=== PATIENT | female | born 1950 | race Caucasian/White ===

== ENCOUNTER → 2017-04-29 | Outpatient (CLI) | payer MEDICARE ==
--- NOTE | 2017-04-29 08:35 | BD ---
EXAMINATION TYPE: MG DEXA axial skeleton. DATE OF EXAM: 04/29/2017 COMPARISON: Previous study dated 05/04/2015 CLINICAL HISTORY: Postmenopausal female. Height: 60.5 IN Weight: 167 LBS FRAX RISK QUESTIONS: Alcohol (3 or more units per day): NO Family History (Parent hip fracture): NO Glucocorticoids (More than 3mos): NO (Ex: prednisone, prednisolone, methylprednisolone, dexamethasone, and hydrocortisone). History of Fracture in Adulthood: NO Secondary Osteoporosis: 1. Type 1 Diabetes: NO 2. Hyperthyroidism: NO 3. Menopause before 45: YES AGE 41 4. Malnutrition: NO 5. Chronic liver disease: NO Rheumatoid Arthritis: NO Current Tobacco Use: NO RISK FACTORS HISTORY OF: Active: YES Diet low in dairy products/other sources of calcium: YES Postmenopausal woman: AGE 41 Take estrogen and/or progesterone medications: NOT NOW How long: CONTROL AND HORMONES FOR 20 YRS ALL TOGETHER MEDICATIONS: Thyroid Medications: YES Which medication: Levothyroxine How Lon YR Additional Medications: CALCIUM, VIT D, LEVOTHYROXINE, ARIMIDEX Additional History: BREAST CANCER WITH CHEMO EXAM MEASUREMENTS: Bone mineral densitometry was performed using the [employer] System. Bone mineral density as measured about the Lumbar spine is: ----- L1-L4(G/cm2): 1.331 T Score Values are as follows: ----- L2: 1.2 ----- L3: 1.0 ----- L4: 2.0 ----- L1-L4: 1.3 Bone mineral density has: Decreased -4.3% since study of: 05/04/2015 Bone mineral density about the R hip (g/cm2): 0.797 Bone mineral density about the L hip (g/cm2): 0.743 T Score values are as follows: -----R Neck: -1.7 -----L Neck: -2.1 -----R Total: -0.4 -----L Total: -1.1 Bone mineral density has: Increased 0.7% since study of: 05/04/2015 IMPRESSION: OSTEOPENIA. 10 YEAR FRACTURE RISK: MAJOR OSTEOPOROTIC FRACTURE RISK: 11.1% HIP FRACTURE RISK: 1.9% NOTE: T-SCORE=SD OF THE YOUNG ADULT MEAN.
== END ==
LOC: RADBDWWP 07:46
PROVIDERS: ATTEND Internal Medicine Hematology & Oncology
DX: M85.80 Other specified disorders of bone density and structure, unspecified site (principal); C50.112 Malignant neoplasm of central portion of left female breast; Z79.890 Hormone replacement therapy
CPT/HCPCS: 77080

== ENCOUNTER → 2018-01-02 | Outpatient (CLI) | payer MEDICARE ==
[2018-01-02 09:04] LABS: Basophils % (A) 1 %; Eosinophils # (A) 0.2 k/uL (0-0.7); Eosinophils % (A) 2 %; HCT 41.6 % (34.0-46.0); Lymphocytes # (A) 2.2 k/uL (1.0-4.8); Lymphocytes % (A) 29 %; MCH 30.2 pg (25.0-35.0); MCHC 33.7 g/dL (31.0-37.0); MCV 89.8 fL (80.0-100.0); Mean Platelet Volume 9.4; Monocytes # (A) 0.4 k/uL (0-1.0); Monocytes % (A) 5 %; Neutrophils # (A) 4.7 k/uL (1.3-7.7); Neutrophils % (A) 61 %; Platelet Count 209 k/uL (150-450); RBC 4.63 m/uL (3.80-5.40); RDW 12.2 % (11.5-15.5); WBC 7.7 k/uL (3.8-10.6)
--- NOTE | 2018-01-02 09:34 | US ---
EXAMINATION TYPE: US carotid duplex BILAT DATE OF EXAM: 01/02/2018 COMPARISON: MRI cervical spine July 25, 2016. CLINICAL HISTORY: R60.9 Bilateral Leg Swelling. EXAM MEASUREMENTS: heterogenous thyroid RIGHT: Peak Systolic Velocity (PSV) cm/sec ----- Right CCA: 81.5 ----- Right ICA: 93.9 ----- Right ECA: 107.0 ICA/CCA ratio: 1.2 RIGHT: End Diastole cm/sec ----- Right CCA: 24.6 ----- Right ICA: 32.8 ----- Right ECA: 19.8 LEFT: Peak Systolic Velocity (PSV) cm/sec ----- Left CCA: 135.0 ----- Left ICA: 77.8 ----- Left ECA: 77.8 ICA/CCA ratio: 0.8 LEFT: End Diastole cm/sec ----- Left CCA: 33.3 ----- Left ICA: 31.1 ----- Left ECA: 18.7 VERTEBRALS (direction of flow): Right Vertebral: Antegrade Left Vertebral: Antegrade Rhythm: Normal Grayscale images show no significant focal plaque at carotid bulb level bilaterally. Velocity measure ments and ratios remain within normal limits. Heterogeneous normal size thyroid incidentally noted. IMPRESSION: No hemodynamically significant stenosis is seen in either internal carotid artery.
[2018-01-02 09:42] LABS: ALT 25 U/L (9-52); AST 26 U/L (14-36); Albumin 4.3 g/dL (3.5-5.0); Alkaline Phosphatase 111 U/L (38-126); Anion Gap 14 mmol/L; Blood Urea Nitrogen 17 mg/dL (7-17); Calcium 9.9 mg/dL (8.4-10.2); Carbon Dioxide 25 mmol/L (22-30); Chloride 103 mmol/L (98-107); Cholesterol 244 mg/dL (<200); Glucose 96 mg/dL (74-99); HDL Cholesterol 71 mg/dL (40-60); LDL Cholesterol,Calculated 153 mg/dL (0-99); Potassium 4.5 mmol/L (3.5-5.1); Sodium 142 mmol/L (137-145); Total Bilirubin 0.4 mg/dL (0.2-1.3); Total Protein 7.4 g/dL (6.3-8.2); Triglycerides 101 mg/dL (<150)
[2018-01-02 09:53] LABS: T4, Free (Free Thyroxine) 1.66 ng/dL (0.78-2.19)
[2018-01-02 19:02] LABS: Hemoglobin A1C 5.5 % (4.0-6.0)
== END | disposition home or self-care (01) ==
LOC: RADUSWWP 08:12
PROVIDERS: ATTEND Internal Medicine Geriatric Medicine
DX: I65.23 Occlusion and stenosis of bilateral carotid arteries (principal); G62.9 Polyneuropathy, unspecified; R73.9 Hyperglycemia, unspecified; E03.9 Hypothyroidism, unspecified; E78.00 Pure hypercholesterolemia, unspecified
CPT/HCPCS: 80053; 80061; 83036; 84439; 84443; 85025; 93880

== ENCOUNTER → 2018-05-05 | Outpatient (CLI) | payer MEDICARE ==
--- NOTE | 2018-05-05 13:43 | BD ---
EXAMINATION TYPE: Axial Bone Density DATE OF EXAM: 05/05/2018 Comparison: Most recent bone scan April 29, 2017 CLINICAL HISTORY: Height: 61 Weight: 168 FRAX RISK QUESTIONS: Alcohol (3 or more units per day): no Family History (Parent hip fracture): no Glucocorticoids (More than 3mos): no (Ex: prednisone, prednisolone, methylprednisolone, dexamethasone, and hydrocortisone). History of Fracture in Adulthood: no Secondary Osteoporosis: 1. Type 1 Diabetes: no 2. Hyperthyroidism: no 3. Menopause before 45: no 4. Malnutrition: no 5. Chronic liver disease: no Rheumatoid Arthritis: no Current Tobacco Use: no RISK FACTORS HISTORY OF: Family History of Osteoporosis: unsure Active: yes Diet low in dairy products/other sources of calcium: no Postmenopausal woman: yes Take estrogen and/or progesterone medications: not now How long: hormonal contraceptives for about 20 years Lost more than 2 inches in height since high school: no Frequent falls: no Poor Health: no Hyperparathyroidism: no Adrenal Insufficiency: no MEDICATIONS: Prednisone or other steroids: no Thyroid Medications: yes Which medication: Levothyroxine How Long: a couple years Osteoporosis Medications: no Additional Medications: multiple vitamin, Vitamin D3, Arimidex, Additional History: breast CA age 63/chemo EXAM MEASUREMENTS: Bone mineral densitometry was performed using the [employer] System. Bone mineral density as measured about the Lumbar spine is: ----- L1-L4(G/cm2): 1.329 T Score Values are as follows: ----- L2: 1.3 ----- L3: 1.3 ----- L4: 2.0 ----- L1-L4: 1.2 Bone mineral density has: Increased 0.8since study of: 04/29/2017 Bone mineral density about the R hip (g/cm2): 0.835 Bone mineral density about the L hip (g/cm2): 0.759 T Score values are as follows: -----R Neck: -1.5 -----L Neck: -2.0 -----R Total: -0.5 -----L Total: -0.9 Bone mineral density has: Increased 0.3since study of: 04/29/2017 IMPRESSION: Osteopenia (T Score between -2.5 and -1) at femoral neck level in both hips remains present. Bone den sity is slightly increased from most recent prior There remains slightly increased risk of fracture and the patient may be considered for treatment if Has not begun. Re-Screen 2-5 years. NOTE: T-SCORE=SD OF THE YOUNG ADULT MEAN.
== END | disposition home or self-care (01) ==
LOC: RADBDWWP 09:46
PROVIDERS: ATTEND Internal Medicine Hematology & Oncology
DX: M85.852 Other specified disorders of bone density and structure, left thigh (principal); M85.851 Other specified disorders of bone density and structure, right thigh; C50.112 Malignant neoplasm of central portion of left female breast; Z79.890 Hormone replacement therapy
CPT/HCPCS: 77080

== ENCOUNTER → 2018-10-15 | Outpatient (CLI) | payer MEDICARE ==
--- NOTE | 2018-10-18 15:06 | MM ---
Reason for exam: additional evaluation requested from prior study. Last mammogram was performed 1 year and 1 month ago. History: Patient is postmenopausal, has history of breast cancer at age 63, and is nulliparous. Chemotherapy, January 2015. Implant in the left breast, November 16, 2014. Mastectomy of the left breast, November 16, 2014. Malignant US biopsy breast VAD LT of the left breast, October 11, 2014. Malignant US biopsy breast add'l VAD LT of the left breast, October 11, 2014. Took hormonal contraceptives for 20 years. Taking antineoplastic for 1 year beginning at age 63. Physical Findings: Nurse did not find any significant physical abnormalities on exam. MG 3D Diag Mammo W/Cad RT CC, MLO, and ML view(s) were taken of the right breast. Prior study comparison: September 23, 2017, right breast MG 3d diag mammo w/cad RT. September 21, 2016, right breast MG 3d diag mammo w/cad RT. The breast tissue is heterogeneously dense. This may lower the sensitivity of mammography. There are benign-appearing right breast diffuse calcifications. No suspicious abnormality. These results were verbally communicated with the patient and result sheet given to the patient on 10/15/18. No significant changes when compared with prior studies. ASSESSMENT: Benign, BI-RAD 2 RECOMMENDATION: Follow-up diagnostic mammogram of the right breast in 1 year.
== END | disposition home or self-care (01) ==
LOC: RADMAMWWP 09:20
PROVIDERS: ATTEND Internal Medicine Hematology & Oncology
DX: Z08 Encounter for follow-up examination after completed treatment for malignant neoplasm (principal); Z85.3 Personal history of malignant neoplasm of breast
CPT/HCPCS: 77065; G0279; 77061

== ENCOUNTER → 2018-11-05 | Outpatient (CLI) | payer MEDICARE ==
--- NOTE | 2018-11-05 09:46 | XR ---
EXAMINATION TYPE: XR lumbar spine 2 or 3V DATE OF EXAM: 11/05/2018 COMPARISON: NONE HISTORY: 67-year-old female with low back pain TECHNIQUE: 3 views FINDINGS: Slight levoconvex scoliotic curvature. Hypertrophic facet arthropathy throughout. Moderate discussion plate degenerative change at L2-L3 and mild at multiple additional levels with disc space narrowing and endplate spondylosis. Vertebral body heights are preserved. Trace grade 1 retrolisthesis at L3-L4 . IMPRESSION: Moderate multilevel degenerative disc disease, greatest at L2-L3. Severe hypertrophic facet arthropat hy throughout.
== END ==
LOC: RADXRMAIN 08:57
PROVIDERS: ATTEND Internal Medicine Geriatric Medicine
DX: M51.36 Other intervertebral disc degeneration, lumbar region (principal); M46.96 Unspecified inflammatory spondylopathy, lumbar region
CPT/HCPCS: 72100

== ENCOUNTER → 2019-03-11 | Outpatient (CLI) | payer MEDICARE ==
--- NOTE | 2019-03-11 15:48 | XR ---
EXAMINATION TYPE: XR knee limited RT DATE OF EXAM: 03/11/2019 CLINICAL HISTORY: Right knee pain with no known injury TECHNIQUE: 2 views of the right knee are obtained. COMPARISON: None. FINDINGS: There is no acute fracture/dislocation evident in right knee. The tri-compartment joint s paces demonstrate minimal medial compartment joint space narrowing and very small tricompartmental os teophytes. The overlying soft tissue appears unremarkable. IMPRESSION: There is no acute fracture or dislocation in the right knee. Very mild tricompartmental arthrosis.
== END ==
LOC: RADXRMAIN 14:59
PROVIDERS: ATTEND Internal Medicine Geriatric Medicine
DX: M25.561 Pain in right knee (principal)

== ENCOUNTER → 2019-05-07 | Outpatient (CLI) | payer MEDICARE ==
--- NOTE | 2019-05-07 10:13 | BD ---
EXAMINATION TYPE: Axial Bone Density DATE OF EXAM: 05/07/2019 COMPARISON: 05.05.2018 CLINICAL HISTORY: 68 YR OLD FEMALE....ICD-10 CODE: M85.8 OSTEOPENIA, C50.112 BR CA Height: 60.5 Weight: 161 FRAX RISK QUESTIONS: NOTHING ADDITIONAL TO NOTE HERE RISK FACTORS HISTORY OF: Family History of Osteoporosis: UNKNOWN Active: YES Diet low in dairy products/other sources of calcium: YES Postmenopausal woman: HYST AT AGE 45 MEDICATIONS: Thyroid Medications: YES, LEVOTHYROXINE FOR ABOUT 5 YRS Additional Medications: ARIMIDEX, VIT D3, MULTI-VITAMIN, HX OF CHEMO, REFLUX MEDS PRN, Additional History: HX OF BR CANCER 63 YRS OLD EXAM MEASUREMENTS: Bone mineral densitometry was performed using the [employer] System. Bone mineral density as measured about the Lumbar spine is: ----- L1-L4(G/cm2): 1.343 T Score Values are as follows: ----- L1: 0.4 ----- L2: 1.9 ----- L3: 1.1 ----- L4: 2.0 ----- L1-L4: 1.4 Bone mineral density has: Increased 0.9% since study of: 05.05.2018 Bone mineral density about the R hip (g/cm2): 0.914 Bone mineral density about the L hip (g/cm2): 0.894 T Score values are as follows: -----R Neck: -1.7 -----L Neck: -2.2 -----R Total: -0.7 -----L Total: -0.9 Bone mineral density has: Decreased -1.3% since study of: 05.05.2018 FRAX%s: THERE IS A 12.3% CHANCE FOR A MAJOR OSTEOPOROTIC FX AND A 2.4% FOR HIP.....PROBABILITY FOR FX IN 10 YRS TIME IMPRESSION: Osteopenia (T Score between -2.5 and -1). There is slightly increased risk of fracture and the patient may be considered for treatment. Re-Screen 2-5 years. NOTE: T-SCORE=SD OF THE YOUNG ADULT MEAN.
== END | disposition home or self-care (01) ==
LOC: RADBDWWP 08:30
PROVIDERS: ATTEND Internal Medicine Hematology & Oncology
DX: M85.88 Other specified disorders of bone density and structure, other site (principal); C50.112 Malignant neoplasm of central portion of left female breast; N95.1 Menopausal and female climacteric states; Z79.890 Hormone replacement therapy
CPT/HCPCS: 77080

== ENCOUNTER → 2019-05-22 | Outpatient (CLI) | payer MEDICARE ==
[2019-05-22 10:32] LABS: INR 0.9 (<1.2); Prothrombin Time 9.9 sec (9.0-12.0)
[2019-05-22 10:33] LABS: Basophils # (A) 0.1 k/uL (0-0.2); Basophils % (A) 1 %; Eosinophils # (A) 0.4 k/uL (0-0.7); Eosinophils % (A) 4 %; HCT 43.1 % (34.0-46.0); HGB 14.2 gm/dL (11.4-16.0); Lymphocytes # (A) 2.4 k/uL (1.0-4.8); Lymphocytes % (A) 29 %; MCH 30.8 pg (25.0-35.0); MCHC 32.9 g/dL (31.0-37.0); MCV 93.4 fL (80.0-100.0); Mean Platelet Volume 9.5; Monocytes # (A) 0.4 k/uL (0-1.0); Monocytes % (A) 4 %; Neutrophils % (A) 60 %; Platelet Count 225 k/uL (150-450); RBC 4.61 m/uL (3.80-5.40); RDW 14.5 % (11.5-15.5); WBC 8.3 k/uL (3.8-10.6)
[2019-05-22 11:00] LABS: Appearance,Urine Clear (Clear); Bilirubin,Urine Negative (Negative); Blood,Urine Negative (Negative); Color,Urine Light Yellow; Glucose,Urine (UA) Negative (Negative); Ketones,Urine Negative (Negative); Leukocyte Esterase,Urine Negative (Negative); Nitrite,Urine Negative (Negative); Protein,Urine Negative (Negative); Specific Gravity,Urine 1.005 (1.001-1.035); Urobilinogen,Urine <2.0 mg/dL (<2.0)
[2019-05-22 16:06] LABS: African American GFR (CKD) 87.8 (60.0-200.0); Albumin 4.7 g/dL (3.80-4.90); Albumin/Globulin Ratio 2.04 (1.60-3.17); Anion Gap 10.3 mmol/L (4.00-12.00); BUN/Creat Ratio 18.75 Ratio (12.00-20.00); Calcium 9.6 mg/dL (8.7-10.3); Carbon Dioxide 26.7 mmol/L (21.6-31.8); Globulin 2.3 g/dL (1.6-3.3); Potassium 4.6 mmol/L (3.5-5.5); Total Bilirubin 0.5 mg/dL (0.2-1.2)
[2019-05-22 16:13] LABS: T4, Free (Free Thyroxine) 1.4 ng/dL (0.80-1.80)
== END | disposition home or self-care (01) ==
LOC: LABWHC1 09:53
PROVIDERS: ATTEND Nurse Practitioner Family
DX: Z01.812 Encounter for preprocedural laboratory examination (principal); Z79.01 Long term (current) use of anticoagulants
CPT/HCPCS: 36415; 80053; 81003; 84439; 84443; 85025; 85610

== ENCOUNTER → 2019-11-24 | Outpatient (CLI) | payer MEDICARE ==
--- NOTE | 2019-11-24 07:43 | MM ---
Reason for exam: additional evaluation requested from prior study. Last mammogram was performed 1 year and 1 month ago. History: Patient is postmenopausal, has history of breast cancer at age 63, and is nulliparous. Chemotherapy, January 2015. Implant in the left breast, November 16, 2014. Mastectomy of the left breast, November 16, 2014. Malignant US biopsy breast VAD LT of the left breast, October 11, 2014. Malignant US biopsy breast add'l VAD LT of the left breast, October 11, 2014. Took hormonal contraceptives for 20 years. Taking antineoplastic for 5 years beginning at age 63. Physical Findings: Nurse did not find any significant physical abnormalities on exam. MG 3D Diag Mammo W/Cad RT CC and MLO view(s) were taken of the right breast. Prior study comparison: October 15, 2018, right breast MG 3d diag mammo w/cad RT. September 23, 2017, right breast MG 3d diag mammo w/cad RT. The breast tissue is heterogeneously dense. This may lower the sensitivity of mammography. There is chronic nodularity in the right breast. Stable numerous oil cyst calcifications. No significant new findings when compared with previous films. These results were verbally communicated with the patient and result sheet given to the patient on 11/24/19. ASSESSMENT: Benign, BI-RAD 2 RECOMMENDATION: Follow-up diagnostic mammogram of the right breast in 1 year.
== END | disposition home or self-care (01) ==
LOC: RADMAMWWP 06:48
PROVIDERS: ATTEND Internal Medicine Hematology & Oncology
DX: Z08 Encounter for follow-up examination after completed treatment for malignant neoplasm (principal); Z85.3 Personal history of malignant neoplasm of breast
CPT/HCPCS: 77065; G0279; 77061

== ENCOUNTER → 2020-04-15 | Outpatient (CLI) | payer MEDICARE ==
[2020-04-15 07:39] LABS: Basophils # (A) 0.1 k/uL (0-0.2); Basophils % (A) 1 %; Eosinophils # (A) 0.2 k/uL (0-0.7); Eosinophils % (A) 3 %; HCT 43.6 % (34.0-46.0); Lymphocytes # (A) 2.4 k/uL (1.0-4.8); Lymphocytes % (A) 34 %; MCH 29.8 pg (25.0-35.0); MCHC 32.1 g/dL (31.0-37.0); MCV 92.7 fL (80.0-100.0); Monocytes # (A) 0.3 k/uL (0-1.0); Monocytes % (A) 5 %; Neutrophils % (A) 56 %; Platelet Count 191 k/uL (150-450); RDW 12.7 % (11.5-15.5); WBC 7.2 k/uL (3.8-10.6)
[2020-04-15 12:31] LABS: African American GFR (CKD) 87.2 (60.0-200.0); Albumin 4.3 g/dL (3.80-4.90); Albumin/Globulin Ratio 1.87 (1.60-3.17); Anion Gap 9.1 mmol/L (4.00-12.00); BUN/Creat Ratio 22.5 Ratio (12.00-20.00); Calcium 9.2 mg/dL (8.7-10.3); Carbon Dioxide 24.9 mmol/L (21.6-31.8); Chol/HDL Ratio 3.57; Globulin 2.3 g/dL (1.6-3.3); LDL Cholesterol,Calculated 153.6 mg/dL (0.0-131.0); Non-African American GFR(CKD) 75.2 (60.0-200.0); Potassium 4.2 mmol/L (3.5-5.5); Total Bilirubin 0.6 mg/dL (0.3-1.2); Total Protein 6.6 g/dL (6.2-8.2); VLDL Calculation 21.4 mg/dL (5.00-40.00)
[2020-04-15 15:42] LABS: Hemoglobin A1C 5.9 % (4.0-6.0)
== END | disposition home or self-care (01) ==
LOC: LABWHC1 07:19
PROVIDERS: ATTEND Internal Medicine Geriatric Medicine
DX: E78.2 Mixed hyperlipidemia (principal); R73.09 Other abnormal glucose; E03.9 Hypothyroidism, unspecified; C50.112 Malignant neoplasm of central portion of left female breast
CPT/HCPCS: 36415; 80053; 80061; 83036; 84443; 85025

== ENCOUNTER → 2020-11-25 | Outpatient (CLI) | payer MEDICARE ==
--- NOTE | 2020-11-25 11:43 | MM ---
Reason for exam: additional evaluation requested from prior study. Last mammogram was performed 1 year ago. History: Patient is postmenopausal, has history of breast cancer at age 63, and is nulliparous. Chemotherapy, January 2015. Implant in the left breast, November 16, 2014. Mastectomy of the left breast, November 16, 2014. Malignant US biopsy breast VAD LT of the left breast, October 11, 2014. Malignant US biopsy breast add'l VAD LT of the left breast, October 11, 2014. Took hormonal contraceptives for 20 years. Taking antineoplastic for 5 years beginning at age 63. Physical Findings: Nurse did not find any significant physical abnormalities on exam. MG 3D Diag Mammo W/Cad RT CC and MLO view(s) were taken of the right breast. Prior study comparison: November 24, 2019, right breast MG 3d diag mammo w/cad RT. October 15, 2018, right breast MG 3d diag mammo w/cad RT. The breast tissue is heterogeneously dense. This may lower the sensitivity of mammography. Finding: There are typically benign round, skin, diffuse/scattered calcifications in the right breast. No significant changes in finding since November 24, 2019 and October 15, 2018. These results were verbally communicated with the patient and result sheet given to the patient on 11/25/20. ASSESSMENT: Benign, BI-RAD 2 RECOMMENDATION: Follow-up diagnostic mammogram of the right breast in 1 year.
== END | disposition home or self-care (01) ==
LOC: RADMAMWWP 10:44
PROVIDERS: ATTEND Internal Medicine Hematology & Oncology
DX: Z08 Encounter for follow-up examination after completed treatment for malignant neoplasm (principal); Z85.3 Personal history of malignant neoplasm of breast
CPT/HCPCS: 77065; G0279; 77061

== ENCOUNTER → 2021-11-28 | Outpatient (CLI) | payer MEDICARE ==
--- NOTE | 2021-11-28 10:50 | MM ---
Reason for exam: additional evaluation requested from prior study. Last mammogram was performed 1 year ago. History: Patient is postmenopausal, has history of breast cancer at age 63, and is nulliparous. Chemotherapy, January 2015. Implant in the left breast, November 16, 2014. Mastectomy of the left breast, November 16, 2014. Malignant US biopsy breast VAD LT of the left breast, October 11, 2014. Malignant US biopsy breast add'l VAD LT of the left breast, October 11, 2014. Took hormonal contraceptives for 20 years. Taking antineoplastic for 7 years beginning at age 63. Physical Findings: Nurse did not find any significant physical abnormalities on exam. MG 3D Diag Mammo W/Cad RT CC, MLO, and XCCL view(s) were taken of the right breast. Prior study comparison: November 25, 2020, right breast MG 3d diag mammo w/cad RT. November 24, 2019, right breast MG 3d diag mammo w/cad RT. The breast tissue is heterogeneously dense. This may lower the sensitivity of mammography. Benign dermal calcifications redemonstrated. Global asymmetry subareolar region is unchanged. No significant new findings when compared with previous films. These results were verbally communicated with the patient and result sheet given to the patient on 11/28/21. ASSESSMENT: Benign, BI-RAD 2 RECOMMENDATION: Follow-up diagnostic mammogram of the right breast in 1 year.
--- NOTE | 2021-11-28 18:27 | BD ---
EXAMINATION TYPE: Axial Bone Density DATE OF EXAM: 11/28/2021 COMPARISON: 2018 CLINICAL HISTORY: post menopausal Height: 5'1 Weight: 169 FRAX RISK QUESTIONS: Secondary Osteoporosis: RISK FACTORS HISTORY OF: Postmenopausal woman: y MEDICATIONS: Thyroid Medications: Which medication: Levothyroxine How Lon years Osteoporosis Medications: Which medication: Fosamax How Lon year quit for 4 months Additional Medications: breast cancer, Additional History: breast cancer 2014 EXAM MEASUREMENTS: Bone mineral densitometry was performed using the [employer] System. Bone mineral density as measured about the Lumbar spine is: ----- L1-L4(G/cm2): 1.321 T Score Values are as follows: ----- L2: 0.2 ----- L3: 2.6 ----- L4: 1.5 ----- L1-L4: 1.2 Bone mineral density has: Decreased -1.4% since study of: 05/07/2019 Bone mineral density about the R hip (g/cm2): 0.813 Bone mineral density about the L hip (g/cm2): 0.737 T Score values are as follows: -----R Neck: -1.6 -----L Neck: -2.2 -----R Total: -0.6 -----L Total: -0.8 Bone mineral density has: Increased 1.5% since study of: 05/07/2019 IMPRESSION: Osteopenia (T Score between -2.5 and -1). There is slightly increased risk of fracture and the patient may be considered for treatment. Re-Screen 2-5 years. NOTE: T-SCORE=SD OF THE YOUNG ADULT MEAN.
== END | disposition home or self-care (01) ==
LOC: RADMAMWWP 09:22
PROVIDERS: ATTEND Internal Medicine Hematology & Oncology
DX: R92.8 Other abnormal and inconclusive findings on diagnostic imaging of breast (principal); M85.88 Other specified disorders of bone density and structure, other site; Z79.890 Hormone replacement therapy; Z85.3 Personal history of malignant neoplasm of breast; Z78.0 Asymptomatic menopausal state
CPT/HCPCS: 77080; 77065; G0279; 77061

== ENCOUNTER → 2022-07-20 | Outpatient (CLI) | payer MEDICARE ==
[2022-07-20 16:21] LABS: ALT 22 U/L (8-44); AST 25 U/L (13-35); Albumin 4.5 g/dL (3.8-4.9); Albumin/Globulin Ratio 1.61 (1.60-3.17); Alkaline Phosphatase 86 U/L (41-126); Blood Urea Nitrogen 14.8 mg/dL (9.0-27.0); Calcium 9.5 mg/dL (8.7-10.3); Carbon Dioxide 26.8 mmol/L (20.0-27.5); Chloride 103 mmol/L (96-109); Chol/HDL Ratio 4.02 Ratio; Globulin 2.8 g/dL (1.6-3.3); Glucose 104 mg/dL (70-110); LDL Cholesterol,Calculated 178.7 mg/dL (0.0-131.0); Non-African American GFR(CKD) 74.2 (60.0-200.0); Potassium 5.2 mmol/L (3.5-5.5); Sodium 140 mmol/L (135-145); Total Protein 7.3 g/dL (6.2-8.2)
[2022-07-20 16:55] LABS: Basophils # (A) 0.06 X 10*3/uL (0.00-0.10); Basophils % (A) 0.6 %; Eosinophils # (A) 0.18 X 10*3/uL (0.04-0.35); Eosinophils % (A) 1.9 %; HGB 14.2 g/dL (12.0-15.0); Immature Grans, Automated 0.2 %; Lymphocytes # (A) 3.12 X 10*3/uL (0.90-5.00); Lymphocytes % (A) 33.1 %; MCH 30.9 pg (27.0-32.0); MCV 93.7 fL (80.0-97.0); Mean Platelet Volume 13.7 fL (9.5-12.2); Monocytes # (A) 0.63 X 10*3/uL (0.20-1.00); Monocytes % (A) 6.7 %; NRBC Per 100 WBC 0 /100 WBCS (0.0-0.0); Neutrophils # (A) 5.41 X 10*3/uL (1.80-7.70); Neutrophils % (A) 57.5 %; Platelet Count 186 X 10*3/uL (140-440); RBC 4.59 X 10*6/uL (4.10-5.20); RDW 13.1 % (11.5-14.5); WBC 9.42 X 10*3/uL (4.50-10.00)
== END | disposition home or self-care (01) ==
LOC: LABWHC1 09:51
PROVIDERS: ATTEND Internal Medicine Geriatric Medicine
DX: C50.112 Malignant neoplasm of central portion of left female breast (principal); E78.2 Mixed hyperlipidemia; R73.9 Hyperglycemia, unspecified; E03.9 Hypothyroidism, unspecified
CPT/HCPCS: 36415; 80053; 80061; 83036; 84439; 84443; 85025

== ENCOUNTER → 2023-02-15 | Outpatient (CLI) | payer MEDICARE ==
[2023-02-15 15:27] LABS: ALT 21 U/L (8-44); AST 22 U/L (13-35); African American GFR (CKD) 83.4 (60.0-200.0); Albumin 4.7 g/dL (3.8-4.9); Albumin/Globulin Ratio 1.71 (1.60-3.17); Alkaline Phosphatase 101 U/L (41-126); BUN/Creat Ratio 26.47 Ratio (12.00-20.00); Blood Urea Nitrogen 21.6 mg/dL (9.0-27.0); Calcium 10.2 mg/dL (8.7-10.3); Carbon Dioxide 26.8 mmol/L (20.0-27.5); Chloride 105 mmol/L (96-109); Chol/HDL Ratio 3.69 Ratio; Globulin 2.7 g/dL (1.6-3.3); Glucose 98 mg/dL (70-110); LDL Cholesterol,Calculated 173.6 mg/dL (0.0-131.0); Non-African American GFR(CKD) 71.9 (60.0-200.0); Potassium 4.9 mmol/L (3.5-5.5); Sodium 143 mmol/L (135-145); Total Protein 7.4 g/dL (6.2-8.2)
[2023-02-15 16:20] LABS: Basophils # (A) 0.02 X 10*3/uL (0.00-0.10); Basophils % (A) 0.3 %; Eosinophils % (A) 1.4 %; HCT 44.9 % (37.2-46.3); HGB 14.6 g/dL (12.0-15.0); Immature Grans, Automated 0.3 %; Lymphocytes # (A) 2.14 X 10*3/uL (0.90-5.00); Lymphocytes % (A) 30.7 %; MCH 30.4 pg (27.0-32.0); MCHC 32.5 g/dL (32.0-37.0); MCV 93.5 fL (80.0-97.0); Mean Platelet Volume 13.1 fL (9.5-12.2); Monocytes # (A) 0.52 X 10*3/uL (0.20-1.00); Monocytes % (A) 7.5 %; NRBC Per 100 WBC 0 /100 WBCS (0.0-0.0); Neutrophils # (A) 4.16 X 10*3/uL (1.80-7.70); Neutrophils % (A) 59.8 %; Platelet Count 211 X 10*3/uL (140-440); RDW 12.8 % (11.5-14.5); WBC 6.96 X 10*3/uL (4.50-10.00)
== END | disposition home or self-care (01) ==
LOC: LABWHC1 08:30
PROVIDERS: ATTEND Nurse Practitioner Family
DX: E07.9 Disorder of thyroid, unspecified (principal); E78.2 Mixed hyperlipidemia; R73.9 Hyperglycemia, unspecified
CPT/HCPCS: 36415; 80053; 80061; 83036; 84439; 84443; 85025

== ENCOUNTER → 2023-02-15 | Outpatient (CLI) | payer MEDICARE ==
--- NOTE | 2023-02-15 10:10 | US ---
EXAMINATION TYPE: US abdomen complete DATE OF EXAM: 02/15/2023 COMPARISON: NONE CLINICAL INDICATION: Female, 72 years old with history of R10.9 ABD PAIN; Pain TECHNIQUE: Multiple sonographic images of the abdomen are obtained. 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 The intrahepatic portion of the IVC and proximal abdom inal aorta are within normal limits. There is no evidence of cholelithiasis. Common bile duct is un remarkable. The visualized portions of the pancreas are homogenous. The tail is obscured by overlyi ng bowel gas. The spleen is unremarkable. Kidneys are symmetric and free of hydronephrosis. No roverto l lesions are seen. IMPRESSION: No acute abdominal process.
== END | disposition home or self-care (01) ==
LOC: RADUSWWP 08:03
PROVIDERS: ATTEND Internal Medicine Geriatric Medicine
DX: R10.9 Unspecified abdominal pain (principal)
CPT/HCPCS: 76700

== ENCOUNTER → 2023-10-29 | Outpatient (CLI) | payer MEDICARE ==
[2023-10-29 16:53] LABS: Basophils # (A) 0.05 X 10*3/uL (0.00-0.10); Basophils % (A) 0.6 %; Eosinophils # (A) 0.14 X 10*3/uL (0.04-0.35); Eosinophils % (A) 1.7 %; HCT 43.8 % (37.2-46.3); HGB 14.2 g/dL (12.0-15.0); Lymphocytes # (A) 3.07 X 10*3/uL (0.90-5.00); Lymphocytes % (A) 37.1 %; MCH 30.6 pg (27.0-32.0); MCHC 32.4 g/dL (32.0-37.0); MCV 94.4 FL (80.0-97.0); Mean Platelet Volume 13.9 FL (9.5-12.2); Monocytes # (A) 0.57 X 10*3/uL (0.20-1.00); Monocytes % (A) 6.9 %; NRBC Per 100 WBC 0 X 10*3/uL (0.00-0.01); Neutrophils # (A) 4.42 X 10*3/uL (1.80-7.70); Neutrophils % (A) 53.5 %; Platelet Count 204 X 10*3/uL (140-440); RBC 4.64 X 10*6/uL (4.10-5.20); RDW 12.7 % (11.5-14.5); WBC 8.27 X 10*3/uL (4.50-10.00)
[2023-10-29 17:23] LABS: BUN/Creat Ratio 19.14 Ratio (12.00-20.00); Blood Urea Nitrogen 13.4 mg/dL (9.0-27.0); Chol/HDL Ratio 2.88 Ratio; Glucose 92 mg/dL (70-110); LDL Cholesterol,Calculated 94.5 mg/dL (0.0-131.0)
[2023-10-29 17:24] LABS: ALT 17 U/L (8-44); AST 18 U/L (13-35); Albumin 4.5 g/dL (3.8-4.9); Albumin/Globulin Ratio 1.73 Ratio (1.60-3.17); Alkaline Phosphatase 93 U/L (41-126); Calcium 9.7 mg/dL (8.7-10.3); Carbon Dioxide 24.1 mmol/L (21.6-31.8); Chloride 103 mmol/L (96-109); Globulin 2.6 g/dL (1.6-3.3); Potassium 4.3 mmol/L (3.5-5.5); Sodium 140 mmol/L (135-145); T4, Free (Free Thyroxine) 1.57 ng/dL (0.80-1.80); Total Bilirubin 0.4 mg/dL (0.3-1.2); Total Protein 7.1 g/dL (6.2-8.2)
== END | disposition home or self-care (01) ==
LOC: LABWHC1 08:34
PROVIDERS: ATTEND Internal Medicine Geriatric Medicine
DX: Z00.00 Encounter for general adult medical examination without abnormal findings (principal); E78.2 Mixed hyperlipidemia; E07.9 Disorder of thyroid, unspecified; R73.9 Hyperglycemia, unspecified
CPT/HCPCS: 36415; 80053; 80061; 83036; 84439; 84443; 85025

== ENCOUNTER → 2023-12-02 | Outpatient (CLI) | payer MEDICARE ==
--- NOTE | 2023-12-02 17:02 | BD ---
EXAMINATION TYPE: Axial Bone Density DATE OF EXAM: 12/02/2023 CLINICAL HISTORY: 72 years old Female. ICD-10 CODE: M85.9DISORDER OF BONE DENSITY AND STRUCTURE, UNS PE Height: 60 Weight: 163.7 FRAX RISK QUESTIONS: Alcohol (3 or more units per day): no Family History (Parent hip fracture): no Glucocorticoids (More than 3mos): no (Ex: prednisone, prednisolone, methylprednisolone, dexamethasone, and hydrocortisone). History of Fracture in Adulthood: no Secondary Osteoporosis: 1. Type 1 Diabetes: no 2. Hyperthyroidism: no 3. Menopause before 45: no 4. Malnutrition: no 5. Chronic liver disease: no Rheumatoid Arthritis: no Current Tobacco Use: no RISK FACTORS HISTORY OF: Surgery to Spine/Hip(right/left)/Wrist (right/left): no MEDICATIONS: Thyroid Medications: levothyroxine How Lon years EXAM MEASUREMENTS: Bone mineral densitometry was performed using the [employer], an [employer] System. Bone mineral density as measured about the Lumbar spine is: ----- L1-L4(G/cm2): 1.376 T Score Values are as follows: ----- L1: 0. ----- L2: 1.6 ----- L3: 1.3 ----- L4: 2.8 ----- L1-L4: 1.6 Z Score Values are as follows: ----- L1: 2.2 ----- L2: 3.0 ----- L3: 2.7 ----- L4: 4.2 ----- L1-L4: 3.0 Bone mineral density has: increased 4.2 % since study of: 11.28.2021 Bone mineral density about the R hip (g/cm2): 0.923 Bone mineral density about the L hip (g/cm2): 0.910 T Score values are as follows: -----R Neck: -1.7 -----L Neck: -2.1 -----R Total: -0.7 -----L Total: -0.8 Z Score values are as follows: -----R Neck: 0.0 -----L Neck: -0.4 -----R Total: 0.7 -----L Total: 0.6 Bone mineral density has: decreased -0.1 % since study of: 2.22.2021 FRAX%s: The graph provided illustrates a 12.5% chance for a major osteoporotic fx and a 2.8% chance f or the hips probability for fx in 10 years time. IMPRESSION: Osteopenia (T Score between -2.5 and -1). There is slightly increased risk of fracture and the patient may be considered for treatment. Re-Screen 2-5 years. NOTE: T-SCORE=SD OF THE YOUNG ADULT MEAN.
--- NOTE | 2023-12-03 13:24 | MM ---
Reason for Exam: Screening (asymptomatic). Last screening mammogram was performed 12 month(s) ago. Patient History: Menarche at age 13. Patient has no children. Right ovary removed at age 44. Hysterectomy at age 44. Postmenopausal. Breast cancer, left, age 63. Previous chemotherapy at age 63. Patient used Hormonal Contraceptives for 20 years. 11/16/2014, Mastectomy on the Left side. 10/11/2014, Malignant Core Biopsy on the left side. 10/11/2014, Malignant Core Biopsy on the left side. 01/2015, Chemotherapy. 11/16/2014, Implant on the left side. Sister had breast cancer, age 60. Prior Study Comparison: 11/25/2020 Right Diagnostic Mammogram, [facility]. 11/28/2021 Right Diagnostic Mammogram, [facility]. 11/29/2022 Right MG 3D scr stacie unilateral w/cad., [facility]. Tissue Density: Right: The breast tissue is heterogeneously dense. This may lower the sensitivity of mammography. Findings: Analyzed By CAD. There is no suspicious group of microcalcifications or new suspicious mass. Benign-appearing calcifications right breast. Overall Assessment: Benign, BI-RAD 2 Management: Screening Mammogram of the right breast in [address] [facility] will attempt to contact patient to return for supplemental views and ultrasound if indicated. Patient should continue monthly self-breast exams. A clinical breast exam by your physician is recommended on an annual basis. This exam should not preclude additional follow-up of suspicious palpable abnormalities. Note on Emily scores and lifetime risk: 1. A Emily score greater than 3% is considered moderate risk. If this is the case, consider specialist referral to assess eligibility for a risk reducing agent. 2. If overall lifetime risk for the development of breast cancer is 20% or higher, the patient may qualify for future screening with alternating mammogram and breast MRI. Electronically signed and approved by: Faheem Jc DO
== END | disposition home or self-care (01) ==
LOC: RADMAMWWP 07:54
PROVIDERS: ATTEND Internal Medicine Hematology & Oncology
DX: Z12.31 Encounter for screening mammogram for malignant neoplasm of breast (principal); M85.89 Other specified disorders of bone density and structure, multiple sites; Z85.3 Personal history of malignant neoplasm of breast; Z80.3 Family history of malignant neoplasm of breast; Z78.0 Asymptomatic menopausal state; Z90.12 Acquired absence of left breast and nipple
CPT/HCPCS: 77063; 77067; 77080

== ENCOUNTER → 2023-12-02 | Outpatient (CLI) | payer MEDICARE | END | disposition home or self-care (01) | LOC: RADBDWWP 07:53 | PROVIDERS: ATTEND Internal Medicine Hematology & Oncology | DX: Z53.9 Procedure and treatment not carried out, unspecified reason (principal) ==

== ENCOUNTER → 2023-12-07 | Outpatient (CLI) | payer MEDICARE ==
--- NOTE | 2023-12-07 16:49 | MR ---
EXAMINATION TYPE: MR brain wo/w con DATE OF EXAM: 12/07/2023 4:04 PM CLINICAL INDICATION:Female, 72 years old with history of R42 Dizziness, Headache rt frontal, hx of ac oustic neuroma COMPARISON: None TECHNIQUE: Multi planar, multi sequence imaging was performed through the brain including: T1, T2, In version recovery, susceptibility weighted imaging and gradient echo imaging and Diffusion weighted im aging. The patient was then given intravenous contrast and multi planar, T1 fat-saturation images wer e obtained. IV Contrast: 7.5 cc Gadobutrol FINDINGS: Encephalomalacia the left cerebellum suspicious for sequela prior imaging. Suspected postsu rgical changes to the left cerebellar pontine angle with possible sequela of that in the left cerebel lar region. No definitive mass is seen within the left cerebellar pontine angle. Hemosiderin depositi on is demonstrated along the dura with blooming artifact. Mild cerebral atrophy with proportional dilation of ventricular system. Diffusion-weighted imaging s hows no evidence of restricted diffusion to suggest acute/subacute infarct. Intracranial arterial adeola w voids are maintained. Midline structures show no abnormality. Scattered foci of high T2 signal inte nsity are seen within the periventricular white matter. The susceptibility weighted images do not rev eal any evidence for micro-hemorrhage. After administration of gadolinium, no abnormal enhancement is seen. The bone marrow signal is within normal limits. Paranasal sinuses and mastoid air cells: No significant paranasal sinus disease. paranasal Visualized orbits: Right aphakia IMPRESSION: 1. No evidence of intracranial mass, acute/subacute infarct, or abnormal enhancement. 2. Postsurgical changes to the left cerebellar pontine angle with postsurgical changes in the posteri or cranial fossa. No definitive enhancing mass demonstrated. No evidence of this MRI was not optimize d for evaluation of the internal auditory canals.
== END | disposition home or self-care (01) ==
LOC: RADMRIMAIN 14:45
PROVIDERS: ATTEND Internal Medicine Geriatric Medicine
DX: R42 Dizziness and giddiness (principal); Z98.890 Other specified postprocedural states
CPT/HCPCS: 70553; A9585

== ENCOUNTER → 2024-02-25 | Outpatient (CLI) | payer MEDICARE ==
[2024-02-25 12:08] LABS: Basophils # (A) 0.04 X 10*3/uL (0.00-0.10); Basophils % (A) 0.6 %; Eosinophils # (A) 0.17 X 10*3/uL (0.04-0.35); Eosinophils % (A) 2.4 %; HCT 41.7 % (37.2-46.3); HGB 13.7 g/dL (12.0-15.0); Lymphocytes # (A) 2.57 X 10*3/uL (0.90-5.00); MCH 30.2 pg (27.0-32.0); MCHC 32.9 g/dL (32.0-37.0); MCV 91.9 FL (80.0-97.0); Mean Platelet Volume 13.3 FL (9.5-12.2); Monocytes # (A) 0.49 X 10*3/uL (0.20-1.00); Monocytes % (A) 6.9 %; NRBC Per 100 WBC 0 X 10*3/uL (0.00-0.01); Neutrophils # (A) 3.84 X 10*3/uL (1.80-7.70); Neutrophils % (A) 53.8 %; Platelet Count 192 X 10*3/uL (140-440); RBC 4.54 X 10*6/uL (4.10-5.20); RDW 13.3 % (11.5-14.5); WBC 7.13 X 10*3/uL (4.50-10.00)
[2024-02-25 12:23] LABS: ALT 19 U/L (8-44); AST 23 U/L (13-35); Albumin 4.4 g/dL (3.8-4.9); Albumin/Globulin Ratio 1.69 Ratio (1.60-3.17); Alkaline Phosphatase 91 U/L (41-126); Blood Urea Nitrogen 14.8 mg/dL (9.0-27.0); Calcium 9.9 mg/dL (8.7-10.3); Carbon Dioxide 25.1 mmol/L (21.6-31.8); Chloride 105 mmol/L (96-109); Chol/HDL Ratio 2.83 Ratio; Globulin 2.6 g/dL (1.6-3.3); Glucose 102 mg/dL (70-110); LDL Cholesterol,Calculated 123.6 mg/dL (0.0-131.0); Potassium 4.5 mmol/L (3.5-5.5); Sodium 141 mmol/L (135-145); T4, Free (Free Thyroxine) 1.37 ng/dL (0.80-1.80); Total Bilirubin 0.4 mg/dL (0.3-1.2); VLDL Calculation 19.86 mg/dL (5.00-40.00)
== END | disposition home or self-care (01) ==
LOC: LABWHC1 07:43
PROVIDERS: ATTEND Internal Medicine Geriatric Medicine
DX: C50.912 Malignant neoplasm of unspecified site of left female breast (principal); E78.2 Mixed hyperlipidemia; E03.9 Hypothyroidism, unspecified; R73.9 Hyperglycemia, unspecified
CPT/HCPCS: 36415; 80053; 80061; 83036; 84439; 84443; 85025

== ENCOUNTER → 2024-07-16 | Outpatient (CLI) | payer MEDICARE ==
[2024-07-16 10:23] LABS: Basophils # (A) 0.03 X 10*3/uL (0.00-0.10); Basophils % (A) 0.4 %; Eosinophils # (A) 0.13 X 10*3/uL (0.04-0.35); Eosinophils % (A) 1.9 %; HGB 13.2 g/dL (12.0-15.0); Lymphocytes # (A) 2.68 X 10*3/uL (0.90-5.00); Lymphocytes % (A) 38.8 %; MCH 30.7 pg (27.0-32.0); MCHC 32.2 g/dL (32.0-37.0); MCV 95.3 FL (80.0-97.0); Mean Platelet Volume 13.3 FL (9.5-12.2); Monocytes # (A) 0.46 X 10*3/uL (0.20-1.00); Monocytes % (A) 6.7 %; NRBC Per 100 WBC 0 X 10*3/uL (0.00-0.01); Neutrophils % (A) 52.1 %; Platelet Count 180 X 10*3/uL (140-440); RDW 13.5 % (11.5-14.5); WBC 6.91 X 10*3/uL (4.50-10.00)
[2024-07-16 10:44] LABS: ALT 17 U/L (8-44); AST 22 U/L (13-35); Albumin 4.2 g/dL (3.8-4.9); Albumin/Globulin Ratio 1.75 Ratio (1.60-3.17); Alkaline Phosphatase 91 U/L (41-126); BUN/Creat Ratio 23.86 Ratio (12.00-20.00); Blood Urea Nitrogen 16.7 mg/dL (9.0-27.0); Calcium 9.3 mg/dL (8.7-10.3); Carbon Dioxide 25.2 mmol/L (21.6-31.8); Chloride 106 mmol/L (96-109); Chol/HDL Ratio 3.04 Ratio; Globulin 2.4 g/dL (1.6-3.3); Glucose 96 mg/dL (70-110); LDL Cholesterol,Calculated 135.3 mg/dL (0.0-131.0); Potassium 4.1 mmol/L (3.5-5.5); Sodium 141 mmol/L (135-145); Total Bilirubin 0.3 mg/dL (0.3-1.2); Total Protein 6.6 g/dL (6.2-8.2)
== END | disposition home or self-care (01) ==
LOC: LABWHC1 07:31
PROVIDERS: ATTEND Internal Medicine Geriatric Medicine
CPT/HCPCS: 36415; 80053; 80061; 82043; 82570; 83036; 84439; 84443; 85025

== ENCOUNTER → 2024-08-11 | Outpatient (CLI) | payer MEDICARE ==
--- NOTE | 2024-08-12 16:29 | US ---
EXAMINATION TYPE: US carotid duplex BILAT DATE OF EXAM: 08/11/2024 COMPARISON: US 2018 CLINICAL INDICATION: Female, 73 years old with history of I65.23 OCCLUSION AND STENOSIS OF BILATERAL CAROTID; Additional History: .... TECHNIQUE: Grayscale, color Doppler and spectral Doppler evaluation of the bilateral carotid systems and vertebral arteries.Indirect Doppler criteria was utilized. FINDINGS: EXAM MEASUREMENTS: RIGHT: Peak Systolic Velocity (PSV) cm/sec ----- Right CCA: 70.1 ----- Right ICA: 90.4 ----- Right ECA: 68.2 ICA/CCA ratio: 1.3 RIGHT: End Diastole cm/sec ----- Right CCA: 9.4 ----- Right ICA: 22.2 ----- Right ECA: 0.0 LEFT: Peak Systolic Velocity (PSV) cm/sec ----- Left CCA: 76.1 ----- Left ICA: 89.9 ----- Left ECA: 157.0 ICA/CCA ratio: 1.2 LEFT: End Diastole cm/sec ----- Left CCA: 14.9 ----- Left ICA: 23.8 ----- Left ECA: 0.0 VERTEBRALS (direction of flow): Right Vertebral: Antegrade Left Vertebral: Antegrade Rhythm: Normal IMPRESSION: 1. No significant flow-limiting stenosis bilateral carotid bifurcations Criteria for Assigning % of Stenosis / Diameter reduction (Estimation based on the indirect measurements of the internal carotid artery velocities (ICA PSV). 1. Normal (no stenosis)=ICA PSV < 125 cm/s: ratio < 2.0: ICA EDV<40 cm/s. 2. Less than 50% stenosis=ICA PSV < 125 cm/s: ratio < 2.0: ICA EDV<40 cm/s. 3. 50 to 69% stenosis=ICA PSV of 125 to 230 cm/s: ration 2.0 ? 4.0: ICA EDV 40-100 cm/s. 4. Greater than 70% stenosis to near occlusion= ICA PSV > 230 cm/s: ratio > 4.0: ICA EDV > 100 cm/s. 5. Near occlusion= ICA PSV velocities may be low or undetectable: variable ratio and ICA EDV. 6. Total occlusion=unable to detect flow. [facility], , 08/12/2024 4:27 PM
== END | disposition home or self-care (01) ==
LOC: RADUSWWP 14:19
PROVIDERS: ATTEND Internal Medicine Geriatric Medicine
DX: I65.23 Occlusion and stenosis of bilateral carotid arteries (principal)
CPT/HCPCS: 93880

== ENCOUNTER → 2024-12-03 | Outpatient (CLI) | payer MEDICARE ==
--- NOTE | 2024-12-03 10:28 | MM ---
Reason for Exam: Screening (asymptomatic). Last screening mammogram was performed 12 month(s) ago. Patient History: Menarche at age 13. Patient has no children. Right ovary removed at age 44. Hysterectomy at age 44. Postmenopausal. Breast cancer, left, age 63. Previous chemotherapy at age 63. Patient used Hormonal Contraceptives for 20 years. 11/16/2014, Mastectomy on the Left side. 10/11/2014, Malignant Core Biopsy on the left side. 10/11/2014, Malignant Core Biopsy on the left side. 01/2015, Chemotherapy. 11/16/2014, Implant on the left side. Sister had breast cancer, age 60. Prior Study Comparison: 11/28/2021 Right Diagnostic Mammogram, [facility]. 11/29/2022 Right MG 3D scr stacie unilateral w/cad., [facility]. 12/02/2023 Right MG 3D scr stacie unilateral w/cad., [facility]. Tissue Density: Right: The breasts are heterogeneously dense, which may obscure small masses. Findings: Analyzed By CAD. Right breast: There is no suspicious group of microcalcifications or new suspicious mass. Benign-appearing calcifications right breast. Overall Assessment: Benign, BI-RAD 2 Management: Screening Mammogram of both breasts in [address] [facility] will attempt to contact patient to return for supplemental views and ultrasound if indicated. Patient should continue monthly self-breast exams. A clinical breast exam by your physician is recommended on an annual basis. This exam should not preclude additional follow-up of suspicious palpable abnormalities. Note on Emily scores and lifetime risk: 1. A Emily score greater than 3% is considered moderate risk. If this is the case, consider specialist referral to assess eligibility for a risk reducing agent. 2. If overall lifetime risk for the development of breast cancer is 20% or higher, the patient may qualify for future screening with alternating mammogram and breast MRI. [facility], , 12/03/2024 10:25 AM. Electronically signed and approved by: Faheem Jc DO
== END | disposition home or self-care (01) ==
LOC: RADMAMWWP 09:40
PROVIDERS: ATTEND Internal Medicine Hematology & Oncology
DX: Z12.31 Encounter for screening mammogram for malignant neoplasm of breast (principal); R92.333 Mammographic heterogeneous density, bilateral breasts; Z80.3 Family history of malignant neoplasm of breast; Z85.3 Personal history of malignant neoplasm of breast
CPT/HCPCS: 77067

== ENCOUNTER → 2025-01-19 | Outpatient (CLI) | payer MEDICARE ==
[2025-01-19 15:06] LABS: Basophils # (A) 0.05 X 10*3/uL (0.00-0.10); Basophils % (A) 0.7 %; Eosinophils # (A) 0.05 X 10*3/uL (0.04-0.35); Eosinophils % (A) 0.7 %; HCT 44.5 % (37.2-46.3); HGB 14.3 g/dL (12.0-15.0); Lymphocytes # (A) 1.64 X 10*3/uL (0.90-5.00); Lymphocytes % (A) 22.7 %; MCH 30.2 pg (27.0-32.0); MCHC 32.1 g/dL (32.0-37.0); MCV 93.9 FL (80.0-97.0); Mean Platelet Volume 13.6 FL (9.5-12.2); Monocytes # (A) 0.61 X 10*3/uL (0.20-1.00); Monocytes % (A) 8.4 %; NRBC Per 100 WBC 0 X 10*3/uL (0.00-0.01); Neutrophils # (A) 4.85 X 10*3/uL (1.80-7.70); Neutrophils % (A) 67.2 %; Platelet Count 189 X 10*3/uL (140-440); RBC 4.74 X 10*6/uL (4.10-5.20); RDW 12.9 % (11.5-14.5); WBC 7.22 X 10*3/uL (4.50-10.00)
[2025-01-19 15:34] LABS: ALT 18 U/L (8-44); AST 23 U/L (13-35); Albumin 4.3 g/dL (3.8-4.9); Albumin/Globulin Ratio 1.59 Ratio (1.60-3.17); Alkaline Phosphatase 103 U/L (41-126); BUN/Creat Ratio 18.62 Ratio (12.00-20.00); Blood Urea Nitrogen 14.9 mg/dL (9.0-27.0); Calcium 9.5 mg/dL (8.7-10.3); Carbon Dioxide 24.3 mmol/L (21.6-31.8); Chloride 103 mmol/L (96-109); Chol/HDL Ratio 2.92 Ratio; Creatine Kinase 53 U/L (26-186); Globulin 2.7 g/dL (1.6-3.3); Glucose 94 mg/dL (70-110); LDL Cholesterol,Calculated 122.4 mg/dL (0.0-131.0); Potassium 4.6 mmol/L (3.5-5.5); Sodium 140 mmol/L (135-145); T4, Free (Free Thyroxine) 1.46 ng/dL (0.80-1.80); Total Bilirubin 0.4 mg/dL (0.3-1.2); VLDL Calculation 16.32 mg/dL (5.00-40.00)
== END | disposition home or self-care (01) ==
LOC: LABWHC1 07:30
PROVIDERS: ATTEND Internal Medicine Geriatric Medicine
DX: Z00.00 Encounter for general adult medical examination without abnormal findings (principal); E78.2 Mixed hyperlipidemia; E03.9 Hypothyroidism, unspecified; R73.9 Hyperglycemia, unspecified
CPT/HCPCS: 36415; 80053; 80061; 82550; 83036; 84439; 84443; 85025